=== PATIENT | male | born 1995 | race Two or more races ===

== ENCOUNTER 2024-01-07 15:02 | Emergency (ER) | payer OTHER ==
[~2024-01-07] VITALS: Ht 172.7 cm; Wt 79.2 kg
[2024-01-07 16:09] VITALS: BP 146/82; PULSE 60; RESP 100; O2SAT 100
[2024-01-07 17:00] VITALS: TEMP 98.2
[2024-01-07] MEDS: IBUPROFEN 800 MG TAB PO ONE (17:00)
[2024-01-07] MEDS ORDERED: IBUP-1456 PO (17:02)
== END 2024-01-07 17:24 | disposition home or self-care (01) ==
LOC: ER 15:02
DX: S92.491A Other fracture of right great toe, initial encounter for closed fracture (principal); W22.8XXA Striking against or struck by other objects, initial encounter; Y93.89 Activity, other specified; Y92.89 Other specified places as the place of occurrence of the external cause; Y99.8 Other external cause status
CPT/HCPCS: 73630; 99283; J7030